=== PATIENT | male | born 1960 | race Caucasian/White ===

== ENCOUNTER 2022-09-03 06:37 | Outpatient (OUT) | payer BC, SELFPAY ==
[2022-09-03 07:42] LABS: Basophils Absolute Auto 0.1 10^3/uL (0.0-0.1); Basophils Percent Auto 0.9 % (0.2-2.0); Eosinophils Absolute Auto 0.3 10^3/uL (0.0-0.7); Eosinophils Percent Auto 3.7 % (0.9-7.0); Hemoglobin 17.1 g/dL (14.0-18.0); Immature Granulocytes Abs Auto 0.03 10^3/uL (0.00-0.03); Immature Granulocytes Pct Auto 0.4 % (0.0-0.5); Lymphocytes Absolute Auto 2.5 10^3/uL (1.2-3.8); Mean Corpuscular HGB Conc 34.2 g/dL (29.9-35.2); Mean Corpuscular Hemoglobin 30.4 pg (25.9-34.0); Mean Platelet Volume 9.7 fL (9.5-13.5); Monocytes Absolute Auto 0.8 10^3/uL (0.3-0.8); Monocytes Percent Auto 9.7 % (1.7-12.0); Neutrophils Absolute Auto 4.8 10^3/uL (1.4-6.5); Neutrophils Percent Auto 56.3 % (43.0-75.0); Platelet Count 256 10^3/uL (150-450); Red Blood Count 5.62 10^6/uL (4.70-6.10); Red Cell Distribution Width 12.5 % (11.0-15.0); White Blood Count 8.6 10^3/uL (4.0-11.0)
[2022-09-03 09:07] LABS: Estimated Average Glucose 171 mg/dL; Glycohemoglobin A1C 7.6 % (4.5-6.2)
[2022-09-03 14:44] LABS: Alanine Aminotransferase 41 U/L (16-63); Albumin Globulin Ratio 0.9; Albumin Level 3.5 g/dL (3.4-5.0); Alkaline Phosphatase 108 U/L (46-116); Anion Gap 13.6; Aspartate Amino Transferase 22 U/L (15-37); BUN Creatinine Ratio 10.8; Bilirubin Total 0.7 mg/dL (0.2-1.0); Calcium 9.1 mg/dL (8.5-10.1); Carbon Dioxide 27.3 mmol/L (21.0-32.0); Chloride 102 mmol/L (98-107); Chol HDL Ratio 3.6; Cholesterol 138 mg/dL (<=200); Estimated GFR (African America >60 (>=60); Estimated GFR (Non-African Ame >60 (>=60); Globulin 3.7 g/dL; Glucose 162 mg/dL (74-106); HDL Cholesterol 38 mg/dL (40-60); Potassium 3.9 mmol/L (3.5-5.1); Sodium 139 mmol/L (136-145); Thyroid Stimulating Hormone 0.775 uIU/mL (0.358-3.740); Total Protein 7.2 g/dL (6.4-8.2); Triglycerides 128 mg/dL (<=150); VLDL CHOLESTEROL 25.6 mg/dL
== END 2022-09-03 06:38 | disposition home or self-care (01) ==
LOC: LAB 06:37
PROVIDERS: PCP Internal Medicine; Visit Provider Internal Medicine
DX: Z00.00 Encounter for general adult medical examination without abnormal findings (principal); Z12.5 Encounter for screening for malignant neoplasm of prostate
CPT/HCPCS: 36415; 80053; 80061; 83036; 84443; 85025; G0103

== ENCOUNTER 2023-02-21 09:03 | Outpatient (OUT) | payer BC, SELFPAY ==
--- NOTE | 2023-02-21 09:22 | XR_ITS ---
[place] [id number] Patient Name: MARILIA BARKER MRN: [id number] date: 1960 Sex: M Assigned Patient Location: [facility] Current Patient Location: [facility] Accession/Order Number: [id number] Exam Date: 02/21/2023 09:17 Report Date: 02/21/2023 09:34 At the request of: SHON DOLAN Procedure: XR knee RT 4V EXAM: XR knee RT 4V HISTORY: Right Knee Joint Pain M25.561 COMPARISON: None. TECHNIQUE: 4 views FINDINGS: No acute fracture or dislocation. Mild degenerative changes of the medial compartment of the knee joint. Unremarkable soft tissues. XR/XR knee RT 4V IMPRESSION: Degenerative changes as above. Electronically authenticated by: HIRO LEVY Date: 02/21/2023 09:34
== END 2023-02-21 09:04 | disposition home or self-care (01) ==
LOC: RAD 09:03
PROVIDERS: PCP Internal Medicine; Visit Provider Orthopaedic Surgery
DX: M25.561 Pain in right knee (principal)
CPT/HCPCS: 73564

== ENCOUNTER 2023-02-28 06:51 | Outpatient (OUT) | payer BC, SELFPAY ==
--- NOTE | 2023-02-28 | MR_ITS ---
The [address] [address] Patient Name: MARILIA BARKER MRN: [id number] date: 1960 Sex: M Assigned Patient Location: MRI Current Patient Location: MRI Accession/Order Number: [id number] Exam Date: 02/28/2023 06:51 Report Date: 02/28/2023 21:12 At the request of: SHON DOLAN Procedure: MR knee RT wo con EXAM: MR knee RT wo con HISTORY: pain COMPARISON: 02/21/2023 TECHNIQUE: MRI images obtained with multiple sequences. Noncontrast MRI sequences of the right knee. FINDINGS: Motion artifact limits the examination. Anterior cruciate and posterior cruciate ligaments are intact. Medial collateral ligament and lateral supporting structures are intact. No definitive tear of the lateral meniscus. Lateral compartment articular cartilage is preserved. Suspected horizontal cleavage tear of the medial meniscal posterior horn and body (motion artifact limits the resolution). Surface contour irregularity/fissuring of the medial compartment and medial femoral condyle. Patellofemoral articular cartilage is preserved. Extensor mechanism is intact. No knee joint effusion. No significant subcutaneous soft tissue edema about the knee joint. MR/MR knee RT wo con IMPRESSION: Motion artifact limits the examination. 1. Suspected horizontal cleavage tear of the medial meniscal posterior horn and body. (For definitive characterization, examination should be repeated without motion) 2. Anterior cruciate and posterior cruciate ligaments are intact. 3. Full-thickness chondral fissuring of the medial femoral condyle. Electronically authenticated by: CASSI WEST Date: 02/28/2023 21:12
== END 2023-02-28 06:52 | disposition home or self-care (01) ==
LOC: MRI 06:51
PROVIDERS: PCP Internal Medicine; Visit Provider Orthopaedic Surgery
DX: M25.561 Pain in right knee (principal)
CPT/HCPCS: 73721

== ENCOUNTER 2023-04-07 13:57 | Outpatient (OUT) | payer BC, SELFPAY ==
--- OUTSIDE RECORDS SUMMARY | 2023-04-07 14:01 | XMS_ITS | CCD ---
Author Name Unknown Address [address] [facility] [address] [place] [address] Organization [facility] Care Team Providers Care Manager Of Employee Relations Name Role Phone CATARINA, DR SANDOVAL Primary Care Unavailable AYDEN, DR STILES Attending Unavailable HOY, DR STILES Consulting Unavailable AYDEN, DR STILES Admitting Unavailable BALL, DR SANDOVAL Primary Care Unavailable TERRY, JAYNA Attending Unavailable TERRY, JAYNA Consulting Unavailable TERRY, JAYNA Admitting Unavailable CATARINA, DR SANDOVAL Primary Care Unavailable CATARINA, DR SANDOVAL Admitting Unavailable CATARINA, DR SANDOVAL Attending Unavailable BALL, DR SANDOVAL Consulting Unavailable TERRY, JAYNA Admitting Unavailable BALL, DR SANDOVAL Primary Care Unavailable TERRY, JAYNA Attending Unavailable TERRY, JAYNA Consulting Unavailable CATARINA, DR SANDOVAL Admitting Unavailable BALL, DR SANDOVAL Attending Unavailable BALL, DR SANDOVAL Consulting Unavailable BALL, DR SANDOVAL Primary Care Unavailable Catarina, Christ Unavailable Allergies Allergy Classification Reported Allergen(s) Allergy Type Date of Onset Reaction(s) Facility (1 source) patient allergy list reviewed by nurse or physicia Propensity to adverse reactions Comment:Done [facility] Other (1 source) Allergies Reconciled Propensity to adverse reactions Unknown [facility] Other Medications Current Medications Medication Drug Class(es) Dates Sig (Normalized) Sig (Original) atorvastatin 20 mg oral tablet (4 sources) HMG-CoA Reductase Inhibitor Atorvastatin Calcium 20 MG TAKE 1 TABLET DAILY WITH EVENING MEAL for 90 Active etodolac 500 mg oral tablet (1 source) Nonsteroidal Anti-inflammatory Drug Start: 02-14-2023 take 1 tablet by mouth every twelve hours Etodolac 500 MG 1 tablet with food Orally Twice a day for 14 days Feb, Active losartan potassium 25 mg oral tablet (2 sources) Angiotensin 2 Receptor Rocio Start: 02-11-2023 take 1 tablet by mouth every twenty-four hours Losartan Potassium 25 MG 1 tablet Orally Once a day for 30 days Feb, Active metFORMIN hydrochloride 1000 mg oral tablet (4 sources) Biguanide take 1 tablet by mouth every twelve hours metFORMIN HCl 1000 MG 1 tablet with a meal Orally twice a day for 90 days Active omeprazole 20 mg delayed release oral capsule (4 sources) Proton Pump Inhibitor Omeprazole 20 MG TAKE 1 CAPSULE DAILY ON EMPTY STOMACH FOLLOWED IN 30 MINUTES BY BREAKFAST Active sildenafil 100 mg oral tablet (4 sources) Phosphodiesterase 5 Inhibitor take 1 tablet by mouth every twenty-four hours Sildenafil Citrate 100 MG 1 tablet as needed Orally Once a day Active traMADol hydrochloride 50 mg oral tablet (1 source) Opioid Agonist Start: 02-14-2023 take 1 tablet by mouth once daily at bedtime as needed traMADol HCl 50 MG 1 tablet as needed Orally Once a day at HS for 7 days Feb, Active Problems Active Problems Problem Classification Problem Date Documented Da te Episodic/Chronic Diabetes mellitus with complications (15 sources) Type 2 diabetes mellitus with hyperglycemia; Translations: [Hyperglycemia due to type 2 diabetes mellitus] Onset: 02-24-2022 Chronic Disorders of lipid metabolism (12 sources) Pure hypercholesterolemi a; Translations: [Familial hypercholesterolemi a] Resolved: 08-17-2019 Chronic Esophageal disorders (7 sources) Gastro-esophageal reflux disease with esophagitis; Translations: [Gastroesophageal reflux disease with esophagitis without hemorrhage] Onset: 07-19-2018 Chronic Essential hypertension (3 sources) Essential hypertension; Translations: [Essential (primary) hypertension] Chronic Hyperplasia of prostate (5 sources) Lower urinary tract symptoms due to benign prostatic hypertrophy; Translations: [Benign prostatic hyperplasia with lower urinary tract symptoms] Chronic Other circulatory disease (5 sources) Elevated blood-pressure reading without diagnosis of hypertension; Translations: [Elevated blood-pressure reading, without diagnosis of hypertension] Episodic Other ear and sense organ disorders (1 source) Impacted cerumen; Translations: [Impacted cerumen, bilateral] Episodic Other lower respiratory disease (4 sources) Lung mass; Translations: [Other nonspecific abnormal finding of lung field] Episodic Other lower respiratory disease (1 source) Solitary nodule of lung; Translations: [Solitary pulmonary nodule] Episodic Other lower respiratory disease (1 source) Lung field abnormal; Translations: [Other nonspecific abnormal finding of lung field] Episodic Other male genital disorders (4 sources) Impotence of organic origin; 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] Chronic Other nutritional; endocrine; and metabolic disorders (2 sources) Overweight Episodic Other nutritional; endocrine; and metabolic disorders (1 source) Overweight; Translations: [Overweight] Episodic Substance-related disorders (4 sources) Tobacco user; Translations: [Nicotine dependence, cigarettes, in remission] Chronic Superficial injury; contusion (2 sources) Contusion of right thigh, initial encounter; Translations: [Contusion of right lower leg, subsequent encounter] Episodic Unclassified (3 sources) CONTACT W/AND (SUSP) EXPOS COVID-19; Translations: [CONTACT W/AND (SUSP) EXPOS COVID-19] Onset: 11-22-2021 Past or Other Problems Problem Classification Problem Date Documented Da te Episodic/Chronic Bacterial infection; unspecified site (1 source) Bacterial infectious disease; Translations: [Bacterial infection, unspecified, in conditions classified elsewhere and of unspecified site] Onset: 08-29-2018 Episodic Diabetes mellitus without complication (1 source) Type 2 diabetes mellitus without complication; Translations: [Type 2 diabetes mellitus without complications] Resolved: 08-17-2019 Chronic Esophageal disorders (2 sources) Esophageal disorders Other screening for suspected conditions (not mental disorders or infectious disease) (1 source) Encounter for screening for malignant neoplasm of prostate; Translations: [ENC SCREEN MALIG NEOPLASM PROSTATE] Onset: 08-04-2021 Episodic Screening and history of mental health and substance abuse codes (1 source) History of tobacco use; Translations: [Personal history of tobacco use, presenting hazards to health] Onset: 09-06-2018 Episodic Skin and subcutaneous tissue infections (1 source) Cellulitis and abscess of trunk; Translations: [Cutaneous abscess of perineum] Onset: 08-29-2018 Episodic Unclassified (1 source) CONTACT W/AND (SUSP) EXPOS COVID-19; Translations: [CONTACT W/AND (SUSP) EXPOS COVID-19] Onset: 11-18-2021 Results Test Name Value Interpretation Reference Range Facility GLYCOHEMOGLOBIN A1Con 2021 ADA RECOMMENDATION SEE BELOW Normal [facility] Comment on above: Result Comment: ADA RECOMMENDED LIMIT 4.0 - 6.0 ADA THERAPEUTIC TARGET < 7.0 ACTION SUGGESTED > 7.0 Performed By: #### A 1C #### [facility] [address] [place] [address] Dr. Carmel Overton Glucose [Mass/Vol] 157 mg/dL Normal [facility] Comment on above: Performed By: #### A 1C #### [facility] [address] [place] [address] Dr. Carmel Overton HbA1c (Bld) [Mass fraction] 7.1 % Critically high 4.5-6.2 [facility] Comment on above: Performed By: #### A 1C #### [facility] [address] [place] [address] Dr. Carmel Overton Covid-19 PCR ([facility])on SARS-CoV-2 (COVID-19) RNA ABBE+probe Ql (Unsp spec) Not detected Normal NOT DETECTED [facility] Comment on above: Result Comment: When diagnostic testing is negative, the possibility of a false negative should be considered in the context of a patient's recent exposures and the presence of clinical signs and symptoms consistent with SARS-CoV-2. This test is not yet approved or cleared by the [place] FDA. When there are no FDA-approved or cleared tests available, and other criteria are met, FDA can make tests available under an emergency access mechanism called an Emergency Use Authorization (EUA). The EUA for this test is supported by the [place] of Health and Human Service's declaration that circumstances exist to justify the emergency use of in vitro diagnostics for the detection and/or diagnosis of the virus that causes COVID-19. This EUA will remain in effect for the duration of the COVID-19 declaration justifying emergency of IVDs, unless it is terminated or revoked by the FDA (after which the test may no longer be used). Performed By: #### C VDTBH #### [facility] [address] [place] [address] Dr. Carmel Overton CBC AUTO DIFFon 07-30-2021 BASO # 0.1 103/ul Normal 0.0-0.1 [facility] Comment on above: Performed By: #### C BC #### [facility] [address] [place] [address] Dr. Carmel Overton Basophils/100 WBC (Bld) 0.8 % Normal 0.2-2.0 [facility] Comment on above: Performed By: #### C BC #### [facility] [address] [place] [address] Dr. Carmel Overton EO # 0.3 103/ul Normal 0.0-0.7 [facility] Comment on above: Performed By: #### C BC #### [facility] [address] [place] [address] Dr. Carmel Overton Eosinophils/100 WBC (Bld) 3.6 % Normal 0.9-7.0 [facility] Comment on above: Performed By: #### C BC #### [facility] [address] [place] [address] Dr. Carmel Overton Erythrocyte distribution width (RBC) [Ratio] 12.4 % Normal 11.0-15.0 [facility] Comment on above: Performed By: #### C BC #### [facility] [address] [place] [address] Dr. Carmel Overton Hematocrit (Bld) [Volume fraction] 49.5 % Normal 42.0-54.0 [facility] Comment on above: Performed By: #### C BC #### [facility] [address] [place] [address] Dr. Carmel Overton Hemoglobin (Bld) [Mass/Vol] 16.8 g/dL Normal 14.0-18.0 [facility] Comment on above: Performed By: #### C BC #### [facility] [address] [place] [address] Dr. Careml Overton IG # 0.02 10e3/ul Normal 0.00-0.03 [facility] Comment on above: Performed By: #### C BC #### [facility] [address] [place] [address] Dr. Carmel Overton IG % 0.2 % Normal 0.0-0.5 [facility] Comment on above: Performed By: #### C BC #### [facility] [address] [place] [address] Dr. Carmel Overton LYMPH # 2.7 103/ul Normal 1.2-3.8 [facility] Comment on above: Performed By: #### C BC #### [facility] [address] [place] [address] Dr. Carmel Overton Lymphocytes/100 WBC (Bld) 30.8 % Normal 20.5-60.0 [facility] Comment on above: Performed By: #### C BC #### [facility] [address] [place] [address] Dr. Carmel Overton MANUAL DIFF REQ NO Normal [facility] Comment on above: Performed By: #### C BC #### [facility] [address] [place] [address] Dr. Carmel Overton MCH (RBC) [Entitic mass] 30.3 pg Normal 25.9-34.0 [facility] Comment on above: Performed By: #### C BC #### [facility] [address] [place] [address] Dr. Carmel Overton MCHC (RBC) [Mass/Vol] 33.9 g/dL Normal 29.9-35.2 [facility] Comment on above: Performed By: #### C BC #### [facility] [address] [place] [address] Dr. Carmel Overton MCV (RBC) [Entitic vol] 89.2 fL Normal 80.0-94.0 [facility] Comment on above: Performed By: #### C BC #### [facility] [address] [place] [address] Dr. Carmel Overton MONO # 0.8 103/ul Normal 0.3-0.8 [facility] Comment on above: Performed By: #### C BC #### [facility] [address] [place] [address] Dr. Carmel Overton Monocytes/100 WBC (Bld) 8.7 % Normal 1.7-12.0 [facility] Comment on above: Performed By: #### C BC #### [facility] [address] [place] [address] Dr. Carmel Overton NEUT # 4.8 103/ul Normal 1.4-6.5 [facility] Comment on above: Performed By: #### C BC #### [facility] [address] [address] [address] Carmel Overton Neutrophils/100 WBC (Bld) 55.9 % Normal 43.0-75.0 [facility] Comment on above: Performed By: #### C BC #### [facility] [address] [address] [address] Carmel Overton Platelet mean volume (Bld) [Entitic vol] 9.2 fL Critically low 9.5-13.5 [facility] Comment on above: Performed By: #### C BC #### [facility] [address] [address] [address] Carmel Overton PLT 266 103/ul Normal 150-450 [facility] Comment on above: Performed By: #### C BC #### [facility] [address] [address] [address] Carmel Overton RBC 5.55 106/ul Normal 4.70-6.10 [facility] Comment on above: Performed By: #### C BC #### [facility] [address] [address] [address] Carmel Overton WBC 8.6 103/ul Normal 4.0-11.0 [facility] Comment on above: Performed By: #### C BC #### [facility] [address] [address] [address] Carmel Overton GLYCOHEMOGLOBIN A1Con 2021 ADA RECOMMENDATION SEE BELOW Normal [facility] Comment on above: Result Comment: ADA RECOMMENDED LIMIT 4.0 - 6.0 ADA THERAPEUTIC TARGET < 7.0 ACTION SUGGESTED > 7.0 Performed By: #### A 1C #### [facility] [address] [address] [address] Carmel Overton Glucose [Mass/Vol] 157 mg/dL Normal [facility] Comment on above: Performed By: #### A 1C #### [facility] [address] [place] [address] Dr. Carmel Overton HbA1c (Bld) [Mass fraction] 7.1 % Critically high 4.5-6.2 [facility] Comment on above: Performed By: #### A 1C #### [facility] [address] [address] [address] Carmel Overton LIPID PROFILEon 07-30-2021 CHOL-HDL RATIO NORM SEE BELOW Normal [facility] Comment on above: Result Comment: 3.3 - 4.4 LOW RISK 4.4 - 7.1 AVERAGE RISK 7.1 - 11.0 MODERATE RISK >11.0 HIGH RISK Performed By: #### L IPID, TSH, CMP #### [facility] [address] [address] [address] Carmel Overton Cholesterol [Mass/Vol] 148 mg/dL Normal <=200 [facility] Comment on above: Performed By: #### L IPID, TSH, CMP #### [facility] [address] [address] [address] Carmel Overton Cholesterol in HDL [Mass/Vol] 39 mg/dL Critically low 40-60 [facility] Comment on above: Performed By: #### L IPID, TSH, CMP #### [facility] [address] [address] [address] Carmel Overton Cholesterol in LDL [Mass/Vol] 86.8 mg/dL Normal [facility] Comment on above: Performed By: #### L IPID, TSH, CMP #### [facility] [address] [address] [address] Carmel Overton Cholesterol.total/Cho lesterol in HDL [Mass ratio] 3.8 {ratio} Normal [facility] Comment on above: Performed By: #### L IPID, TSH, CMP #### [facility] [address] [address] [address] Carmel Overton HDL NORMAL > or = 60 mg/dl - LO W CARDIOVASCULAR RISK <40 mg/dl - HIGH CARDIOVASCULAR RISK Normal [facility] Comment on above: Performed By: #### L IPID, TSH, CMP #### [facility] [address] [address] [address] Carmel Overton LDL CALC NORMAL SEE BELOW Normal [facility] Comment on above: Result Comment: <100 mg/dl OPTIMAL 100 - 129 mg/dl NEAR OR ABOVE OPTIMAL 130 - 159 mg/dl BORDERLINE HIGH 160 - 189 mg/dl HIGH >190 mg/dl VERY HIGH Performed By: #### L IPID, TSH, CMP #### [facility] [address] [address] [address] Carmel Overton Triglyceride [Mass/Vol] 111 mg/dL Normal <=150 [facility] Comment on above: Performed By: #### L IPID, TSH, CMP #### [facility] [address] [address] [address] Carmel Overton VLDL CALC 22.2 mg/dL Normal [facility] Comment on above: Performed By: #### L IPID, TSH, CMP #### [facility] [address] [place] [address] Dr. Carmel Overton PROF 14(COMP METB)on 022 Albumin [Mass/Vol] 3.6 g/dL Normal 3.4-5.0 [facility] Comment on above: Performed By: #### L IPID, TSH, CMP #### [facility] [address] [place] [address] Dr. Carmel Overton Albumin/Globulin [Mass ratio] 1.0 {ratio} Normal [facility] Comment on above: Performed By: #### L IPID, TSH, CMP #### [facility] [address] [place] [address] Dr. Carmel Overton ALP [Catalytic activity/Vol] 113 U/L Normal 46-116 [facility] Comment on above: Performed By: #### L IPID, TSH, CMP #### [facility] [address] [place] [address] Dr. Carmel Overton ALT [Catalytic activity/Vol] 47 U/L Normal 16-63 [facility] Comment on above: Performed By: #### L IPID, TSH, CMP #### [facility] [address] [place] [address] Dr. Carmel Overton Anion gap [Moles/Vol] 11.8 mmol/L Normal [facility] Comment on above: Performed By: #### L IPID, TSH, CMP #### [facility] [address] [address] [address] Carmel Overton AST [Catalytic activity/Vol] 25 U/L Normal 15-37 [facility] Comment on above: Performed By: #### L IPID, TSH, CMP #### [facility] [address] [address] [address] Carmel Overton Bilirubin [Mass/Vol] 0.8 mg/dL Normal 0.2-1.0 [facility] Comment on above: Performed By: #### L IPID, TSH, CMP #### [facility] [address] [address] [address] Carmel Overton Calcium [Mass/Vol] 9.2 mg/dL Normal 8.5-10.1 [facility] Comment on above: Performed By: #### L IPID, TSH, CMP #### [facility] [address] [place] [address] Dr. Carmel Overton Chloride [Moles/Vol] 100 mmol/L Normal 98-107 [facility] Comment on above: Performed By: #### L IPID, TSH, CMP #### [facility] [address] [address] [address] Carmel Overton CO2 [Moles/Vol] 29.1 mmol/L Normal 21.0-32.[address] [facility] Comment on above: Performed By: #### L IPID, TSH, CMP #### [facility] [address] [place] [address] Dr. Carmel Overton Creatinine [Mass/Vol] 0.77 mg/dL Normal 0.70-1.30 [facility] Comment on above: Performed By: #### L IPID, TSH, CMP #### [facility] [address] [address] [address] Carmel Overton EGFR-AF MONGOLIAN >60 Normal >=60 [facility] Comment on above: Performed By: #### L IPID, TSH, CMP #### [facility] [address] [place] [address] Dr. Carmel Overton EGFR-NON AF MONGOLIAN >60 Normal >=60 [facility] Comment on above: Performed By: #### L IPID, TSH, CMP #### [facility] [address] [address] [address] Carmel Overton Globulin (S) [Mass/Vol] 3.6 g/dL Normal [facility] Comment on above: Performed By: #### L IPID, TSH, CMP #### [facility] [address] [address] [address] Carmel Overton Glucose [Mass/Vol] 172 mg/dL Critically high 74-[address] [facility] Comment on above: Performed By: #### L IPID, TSH, CMP #### [facility] [address] [place] [address] Dr. Carmel Overton Potassium [Moles/Vol] 3.9 mmol/L Normal 3.5-5.1 [facility] Comment on above: Performed By: #### L IPID, TSH, CMP #### [facility] [address] [place] [address] Dr. Carmel Overton Protein [Mass/Vol] 7.2 g/dL Normal 6.4-8.2 [facility] Comment on above: Performed By: #### L IPID, TSH, CMP #### [facility] [address] [place] [address] Dr. Carmel Overton Sodium [Moles/Vol] 137 mmol/L Normal 136-145 [facility] Comment on above: Performed By: #### L IPID, TSH, CMP #### [facility] [address] [place] [address] Dr. Carmel Overton Urea nitrogen [Mass/Vol] 9.0 mg/dL Normal 7.0-18.0 [facility] Comment on above: Performed By: #### L IPID, TSH, CMP #### [facility] [address] [place] [address] Dr. Carmel Overton Urea nitrogen/Creatinine [Mass ratio] 11.7 mg/mg Normal [facility] Comment on above: Performed By: #### L IPID, TSH, CMP #### [facility] [address] [place] [address] Dr. Carmel JEWELLon 07-30-2021 TSH 0.696 uIU/mL Normal 0.358-3.740 [facility] Comment on above: Performed By: #### L IPID, TSH, CMP #### [facility] [id number] Carmel Overton TSH RANGE SEE BELOW Normal [facility] Comment on above: Result Comment: <0.3 4 UIU/ml HYPERTHYROID 0.34-5.60 UIU/ml EUTHYROID >5.60 UIU/ml HYPOTHYROID Performed By: #### L IPID, TSH, CMP #### [facility] [address] [address] [address] Carmel Overton Covid-19 PCR ([facility])on 03-14 SARS-CoV-2 (COVID-19) RNA ABBE+probe Ql (Unsp spec) Not detected Normal NOT DETECTED [facility] Comment on above: Result Comment: When diagnostic testing is negative, the possibility of a false negative should be considered in the context of a patient's recent exposures and the presence of clinical signs and symptoms consistent with SARS-CoV-2. This test is not yet approved or cleared by the [place] Food and Drug Administration (FDA). This test was developed by [employer], [place], [place]. The performance characteristics of this test were validated by [facility]. The results are not intended to be used as the sole means for clinical diagnosis or patient management decisions. [facility] is authorized under Clinical Laboratory Improvement Amendments (CLIA) to perform high- complexity testing. This test is not yet approved or cleared by the [place] FDA. When there are no FDA-approved or cleared tests available, and other criteria are met, FDA can make tests available under an emergency access mechanism called an Emergency Use Authorization (EUA). The EUA for this test is supported by the [place] of Health and Human Service's declaration that circumstances exist to justify the emergency use of in vitro diagnostics for the detection and/or diagnosis of the virus that causes COVID-19. This EUA will remain in effect for the duration of the COVID-19 declaration justifying emergency of IVDs, unless it is terminated or revoked by the FDA (after which the test may no longer be used). Performed By: #### C VDTBH #### [facility] [address] [place] [address] Dr. Carmel Overton Vital Signs Date Time Vital Sign Value Performing Clinician Facility 02-11-2023 08:30-0500 Body height 175.26 cm Christ Ball Other [facility] Other 02-11-2023 08:30-0500 Body mass index (BMI) [Ratio] 25.9 kg/m2 Christ Ball Other [facility] Other 02-11-2023 08:30-0500 Body weight 79.56 kg Christ Ball Other [facility] Other 02-11-2023 08:30-0500 Diastolic blood pressure 88 mm[Hg] Christ Ball Other [facility] Other 02-11-2023 08:30-0500 Respiratory rate 12 /min Christ Ball Other [facility] Other 02-11-2023 08:30-0500 Systolic blood pressure 138 mm[Hg] Christ Ball Other [facility] Other 09-09-2022 09:00-0400 Body height 175.26 cm Christ Ball Other [facility] Other 09-09-2022 09:00-0400 Body mass index (BMI) [Ratio] 26.34 kg/m2 Christ Ball Other [facility] Other 09-09-2022 09:00-0400 Body weight 80.92 kg Christ Ball Other [facility] Other 09-09-2022 09:00-0400 Diastolic blood pressure 85 mm[Hg] Christ Ball Other [facility] Other 09-09-2022 09:00-0400 Respiratory rate 12 /min Christ Catarina Other [facility] Other 09-09-2022 09:00-0400 Systolic blood pressure 139 mm[Hg] Christ Elmore Other [facility] Other Encounters Encounter Date Encounter Type Care Provider Facility Start: 02-14-2023 End: 02-14-2023 ambulatory Christ Elmore Other [facility] Other Start: 02-14-2023 Telephone encounter Christ TOMAS G [facility] Start: 02-11-2023 End: 02-11-2023 ambulatory Christ Catarina Other [facility] Other Start: 02-11-2023 Office outpatient vi sit 15 minutes Christ Elmore [facility] Start: 12-25-2022 End: 12-25-2022 ambulatory Christ Elmore Other [facility] Other Start: 12-25-2022 Telephone encounter Christ TOMAS G [facility] Start: 09-09-2022 End: 09-09-2022 ambulatory Christ Catarina Other [facility] Other Start: 09-09-2022 Encounter for genera l adult medical examination without abnormal findings Christ Elmore [facility] Start: 09-09-2022 Periodic preventive med est patient 40-64yrs Christ Elmore [facility] Start: 02-24-2022 End: 02-25-[address] CHRIST ELMORE Facility:[facility] Start: 02-10-2022 End: 02-11-[address] CHRIST ELMORE Facility:[facility] Start: 11-18-2021 End: 11-18-2021 ambulatory JAYNA STEWART Facility:[facility] Start: 08-26-2021 Adult health examination Christ Elmore Other [facility] Other Start: 08-04-2021 Encounter for genera l adult medical examination without abnormal findings DR CHRIST ELMORE [facility] Start: 07-30-2021 End: 07-31-[address] CHRIST ELMORE Facility:[facility] Start: 07-30-2021 End: 07-31-2021 Encounter for general adult medical examination without abnormal findings DR CHRIST ELMORE Facility:[facility] Start: 03-30-2021 End: 03-30-[address] CHRIST ELMORE Facility:[facility] Procedures Date Procedure Procedure Detail Performing Clinician Start: 07-30-[address] DYAN ELMORE Comment on above: Performed By: #### P SASC #### [facility] [address] [address] [address] Carmel Overton Start: 08-02-2018 General examination of patient Christ Elmore Other Start: 08-02-2018 Screening for malign ant neoplasm of colon Christ Catarina Other Depression screening [facility] Other Immunizations Immunization Date Immunization Notes Care Provider [facility] 02-16-2022 COVID-19 Vaccine Moderna - Documentation Purposes Only Christ Elmore Other [facility] Other 01-23-2021 COVID-19 Vaccine Moderna - Documentation Purposes Only Christ Elmore Other [facility] Other 04-10-2020 COVID-19 Vaccine Moderna - Documentation Purposes Only Christ Elmore Other [facility] Other 03-12-2020 COVID-19 Vaccine Moderna - Documentation Purposes Only Christ Elmore Other [facility] Other 01-12-2017 influenza virus vaccine, split virus (incl. purified surface antigen) Christ Elmore Other [facility] Other Payers Date Payer Category Payer Unknown [id number] 1960 Unknown [id number] 2.16.84 [id number] 1960 Unknown [id number] 2.16.84 [id number] 1960 Unknown [id number] 2.16.84 [id number] 1960 Unknown [id number] 2.16.84 [id number] 1959 Self-pay [id number] [facility] [id number] Unknown [id number] 2.16.84 [id number] Social History Date Type Detail Facility Sex Assigned At [facility] Other Evaluation note 02-14-2023 Note Date & Type Note Facility 02-14-2023 Evaluation note Encounter Date Diagnosis Assessment Notes Feb, Contusion of right lower leg, subsequent encounter (ICD-10 - S80.11XD) [facility] Other Evaluation note 02-11-2023 Note Date & Type Note Facility 02-11-2023 Evaluation note Encounter Date Diagnosis Assessment Notes Feb, Type 2 diabetes mellitus with hyperglycemia, without long-term current use of insulin (ICD-10 - E11.65) Feb, Primary hypertension (ICD-10 - I10) This patient is instructed to consume a healthy, low-fat, low-salt diet. They are also encouraged to continue exercise to achieve/maintain a normal BMI. Patient is instructed on home BP measurements: - rest for 5 minutes w/o talking- positioned w/ feet on floor and arm supported- average best 2/3 readings w/ goal < 135/85 Stop in office in couple weeks for recheck Feb, Hypercholesterolemia (ICD-10 - E78.00) Instructed on diet and exercise with continued statin therapy.Discusse d the beneficial effects of lowering cholesterol in reducing the risk for cerebrovascular and cardiovascular disease. Feb, Contusion of right thigh, initial encounter (ICD-10 - S70.11XA) Ice/heat and ROM exercises. Tylenol 1000mg tid Voltaren Gel qid Compression sleeve ROM exercises. Feb, Overweight (ICD-10 - E66.3) This patient has been instructed on a low-fat, high-fiber diet. They are instructed to reduce calories, portion sizes and snacks. It is recommended that they exercise for 30 minutes, 3-5 times weekly. Feb, Gastroesophageal reflux disease with esophagitis without hemorrhage (ICD-10 - K21.00) Diet instructions: Smaller portions, avoid eating and laying flat, avoid eating or drinking prior to bedtime. Weight loss. [facility] Other Evaluation note 09-09-2022 Note Date & Type Note Facility 09-09-2022 Evaluation note Encounter Date Diagnosis Assessment Notes Aug, Wellness examination (ICD-10 - Z00.00) Healthy diet and exercise. Reviewed age-appropriate preventive testing recommended. Aug, Type 2 diabetes mellitus with hyperglycemia, without long-term current use of insulin (ICD-10 - E11.65) This patient is following a comprehensive diabetic treatment plan. They are checking their feet daily for calluses and nonhealing ulcers. They are being seen for yearly dilated eye examinations. Goals: SBP less than 130, LDL less than 100, FBS less than 140, AC and A1C less than 7%. They are checking their BS daily, will which are reviewed at the office visit. Continue regular routine monitoring of A1C,] Microalbumin, Dilated eye exam and Foot exam Increase Metformin gradually until taking 1000mg bid Aug, Gastroesophageal reflux disease with esophagitis without hemorrhage (ICD-10 - K21.00) Diet instructions: Smaller portions, avoid eating and laying flat, avoid eating or drinking prior to bedtime. Weight loss. Aug, Hypercholesterolemia (ICD-10 - E78.00) Instructed on diet and exercise with continued statin therapy.Discusse d the beneficial effects of lowering cholesterol in reducing the risk for cerebrovascular and cardiovascular disease. Aug, Overweight (ICD-10 - E66.3) This patient has been instructed on a low-fat, high-fiber diet. They are instructed to reduce calories, portion sizes and snacks. It is recommended that they exercise for 30 minutes, 3-5 times weekly. [facility] Other Evaluation note Note Date & Type Note Facility Evaluation note No Information [facility] Other History general Narrative - Reported Note Date & Type Note Facility History general Narrative - Reported Type Medical History Elevated blood press ure (not hypertension) Medical History Erectile dysfunction due to arterial insufficiency Medical History Nicotine dependence, cigarettes, in remission Medical History Benign prostatic hyp erplasia with lower urinary tract symptoms Medical History Gastroesophageal ref lux disease with esophagitis without hemorrhage Medical History Hyperlipidemia type II Medical History Controlled type 2 di abetes mellitus with hyperglycemia, without long-term current use of insulin Medical History Lung mass Surgical History Appendectomy 2017 Hospitalization History see surgical history [facility] Other Summary Purpose Family History No Family History Records Found Advance Directives No Advanced Directives Records Found Additional Source Comments (unrecognized sect ion and content) No Status Records Found INFORMATION SOURCE (unrecogn ized section and content) DATE CREATED AUTHOR 03/05/2022 [facility] REASON FOR VISIT (unrecogniz ed section and content) WellnessNo Information6 stewart h Follow up/ kneeAdditional Medication FOR RECORDS PERTAINING TO PATIENTS WHO ARE OR HAVE BEEN ENROLLED IN A CHEMICAL DEPENDENCY/SUBSTANCEABUSE PROGRAM, SOME INFORMATION MAY BE OMITTED. This clinical summary was aggregated from multiple sources. Caution should be exercised in using it in the provision of clinical care. This summary normalizes information from multiple sources, and as a consequence, information in this document may materially change the coding, format and clinical context of patient data. In addition, data may be omitted in some cases. CLINICAL DECISIONS SHOULD BE BASED ON THE PRIMARY CLINICAL RECORDS. [employer] provides no warranty or guarantee of the accuracy or completeness of information in this document.
[2023-04-07] MEDS: COVID VAC 23-24(12UP)MODERNA/PF 50 MCG/0.5 ML VIAL IM (15:31)
== END 2023-04-07 16:25 | disposition home or self-care (01) ==
LOC: VACCLI 13:57
PROVIDERS: PCP Internal Medicine
DX: Z23 Encounter for immunization (principal)
CPT/HCPCS: 90480; 91322

== ENCOUNTER 2023-09-02 06:33 | Outpatient (OUT) | payer BC, SELFPAY ==
--- OUTSIDE RECORDS SUMMARY | 2023-09-02 06:34 | XMS_ITS ---
Patient Summarization (C-CDA 2.1 CCD) Created on: September 02, 2023 MARILIA BARKER : 1960 Sex: Male Author Organization Sample organization Care Team Providers Care Dowel Pointer Name Role Phone CATARINA, DR SANDOVAL Primary Care Unavailable SHARITAY, DR STILES Attending Unavailable HOY, DR STILES Consulting Unavailable HOY, DR STILES Admitting Unavailable BALL, DR SANDOVAL Primary Care Unavailable TERRY, JAYNA Attending Unavailable TERRY, JAYNA Consulting Unavailable TERRY, JAYNA Admitting Unavailable BALL, DR SANDOVAL Primary Care Unavailable BALL, DR SANDOVAL Admitting Unavailable BALL, DR SANDOVAL Attending Unavailable BALL, DR SANDOVAL Consulting Unavailable TERRY, AJYNA Admitting Unavailable BALL, DR SANDOVAL Primary Care Unavailable TERRY, JAYNA Attending Unavailable TERRY, JAYNA Consulting Unavailable BALL, DR SANDOVAL Admitting Unavailable BALL, DR SANDOVAL Attending Unavailable BALL, DR SANDOVAL Consulting Unavailable BALL, DR SANDOVAL Primary Care Unavailable Ball, Christ Unavailable Allergies Allergy Classification Reported Allergen(s) Allergy Type Date of Onset Reaction(s) Facility (1 source) patient allergy list reviewed by nurse or physicia Propensity to adverse reactions 9 Comment:Done YES.[facility]AP Other (1 source) Allergies Reconciled Propensity to adverse reactions Unknown [facility] Other Encounters Encounter Date Encounter Type Care Provider Facility Start: 02-14-2023 End: 02-14-2023 ambulatory Christ Elmore Other YES[facility]AP Other Start: 02-14-2023 Telephone encounter Christ TOMAS [facility] Start: 02-11-2023 End: 02-11-2023 ambulatory Christ Elmore Other YES.TAP Other Start: 02-11-2023 Office outpatient vi sit 15 minutes Christ Elmore [facility] Start: 12-25-2022 End: 12-25-2022 ambulatory Christ Elmore Other YES[facility] Other Start: 12-25-2022 Telephone encounter Christ Elmore [facility] Start: 09-09-2022 End: 09-09-2022 ambulatory Christ Elmore Other YES.TAP Other Start: 09-09-2022 Encounter for genera l adult medical examination without abnormal findings Christ Elmore [facility] Start: 09-09-2022 Periodic preventive med est patient 40-64yrs Christ Elmore [facility] Start: 02-24-2022 End: 02-25-[address] CHRIST ELMORE Facility:[facility] Start: 02-10-2022 End: 02-11-[address] CHRIST ELMORE Facility:[facility] Start: 11-18-2021 End: 11-18-2021 ambulatory JAYNA STEWART Facility:[facility] Start: 08-26-2021 Adult health examination Christ Elmore Other YES[facility]TAP Other Start: 08-04-2021 Encounter for genera l adult medical examination without abnormal findings DR CHRIST ELMORE [facility] Start: 07-30-2021 End: 07-31-[address] CHRIST ELMORE Facility:[facility] Start: 07-30-2021 End: 07-31-2021 Encounter for general adult medical examination without abnormal findings DR CHRIST ELMORE Facility:[facility] Start: 03-30-2021 End: 03-30-[address] CHRIST ELMORE Facility:[facility] Immunizations Immunization Date Immunization Notes Care Provider Fa daniella 02-16-2022 COVID-19 Vaccine Moderna - Documentation Purposes Only Christ Elmore Other [facility] Other 01-23-2021 COVID-19 Vaccine Moderna - Documentation Purposes Only Christ Elmore Other [facility] Other 04-10-2020 COVID-19 Vaccine Moderna - Documentation Purposes Only Christ Elmore Other [facility] Other 03-12-2020 COVID-19 Vaccine Moderna - Documentation Purposes Only Christ Elmore Other YES.TAP Other 01-12-2017 influenza virus vaccine, split virus (incl. purified surface antigen) Christ Elmore Other YES.TAP Other Medications Current Medications Medication Drug Class(es) [...] at HS for 7 days Feb, Active Payers Date Payer Category Payer Unknown [id number] 1960 Unknown [id number] 1960 Unknown [id number] 1960 Unknown [id number] 1960 Unknown [id number] 1959 Self-pay [id number] [facility] [id number] Unknown [id number] Problems Active Problems Problem Classification Problem Date [...] [CONTACT W/AND (SUSP) EXPOS COVID-19] Onset: 11-18-2021 Procedures Date Procedure Procedure Detail Performing Clinician Start: 07-30-[address] ZAIDI IN [facility] Comment on above: Performed By: #### P [facility] #### [facility] [address] [place] [address] Dr. Carmel Overton Start: 08-02-2018 General examination of patient Christ Elmore Other Start: 08-02-2018 Screening for malign ant neoplasm of colon Christ Elmore Other Depression screening Jimbo Elmore Other Results Test Name Value Interpretation Reference Range Facility GLYCOHEMOGLOBIN A1Con 2021 ADA RECOMMENDATION SEE BELOW Normal [facility] Comment on above: Result Comment: ADA RECOMMENDED LIMIT 4.0 - 6.0 ADA THERAPEUTIC TARGET < 7.0 ACTION SUGGESTED > 7.0 Performed By: #### A 1C #### [facility] [address] [place] [address] Dr. Carmel Overton Glucose [Mass/Vol] 157 mg/dL Normal [facility] Comment on above: Performed By: #### A 1C #### [facility] [address] [place] [address] Dr. Carmel Overton HbA1c (Bld) [Mass fraction] 7.1 % Critically high 4.5-6.2 [facility] Comment on above: Performed By: #### A 1C #### [facility] [address] [place] [address] Dr. Carmel Overton Covid-19 PCR ([facility])on SARS-CoV-2 (COVID-19) RNA ABBE+probe Ql (Unsp spec) Not detected Normal NOT DETECTED [facility] Comment on above: Result Comment: When diagnostic [...] for this test is supported by the [place] of Health and Human Service's declaration that [...] used). Performed By: #### C V[facility] #### [facility] [address] [place] [address] Dr. Carmel Overton CBC AUTO DIFFon 07-30-2021 BASO # 0.1 103/ul Normal 0.0-0.1 [facility] Comment on above: Performed By: #### C BC #### [facility] [address] [place] [address] Dr. Carmel Overton Basophils/100 WBC (Bld) 0.8 % Normal 0.2-2.0 [facility] Comment on above: Performed By: #### C BC #### [facility] [address] [place] [address] Dr. Carmel Overton EO # 0.3 103/ul Normal 0.0-0.7 [facility] Comment on above: Performed By: #### C BC #### [facility] [address] [place] [address] Dr. Carmel Overton Eosinophils/100 WBC (Bld) 3.6 % Normal 0.9-7.0 [facility] Comment on above: Performed By: #### C BC #### [facility] [address] [place] [address] Dr. Carmel Overton Erythrocyte distribution width (RBC) [Ratio] 12.4 % Normal 11.0-15.0 [facility] Comment on above: Performed By: #### C BC #### [facility] [address] [place] [address] Dr. Carmel Overton Hematocrit (Bld) [Volume fraction] 49.5 % Normal 42.0-54.0 [facility] Comment on above: Performed By: #### C BC #### [facility] [address] [place] [address] Dr. Carmel Overton Hemoglobin (Bld) [Mass/Vol] 16.8 g/dL Normal 14.0-18.0 [facility] Comment on above: Performed By: #### C BC #### [facility] [address] [place] [address] Dr. Carmel Overton IG # 0.02 10e3/ul Normal 0.00-0.03 [facility] Comment on above: Performed By: #### C BC #### [facility] [address] [place] [address] Dr. Carmel Overton IG % 0.2 % Normal 0.0-0.5 [facility] Comment on above: Performed By: #### C BC #### [facility] [address] [place] [address] Dr. Carmel Overton LYMPH # 2.7 103/ul Normal 1.2-3.8 [facility] Comment on above: Performed By: #### C BC #### [facility] [address] [place] [address] Dr. Carmel Overton Lymphocytes/100 WBC (Bld) 30.8 % Normal 20.5-60.0 [facility] Comment on above: Performed By: #### C BC #### [facility] [address] [place] [address] Dr. Carmel Overton MANUAL DIFF REQ NO Normal [facility] Comment on above: Performed By: #### C BC #### [facility] [address] [place] [address] Dr. Carmel Overton MCH (RBC) [Entitic mass] 30.3 pg Normal 25.9-34.0 [facility] Comment on above: Performed By: #### C BC #### [facility] [address] [place] [address] Dr. Carmel Overton MCHC (RBC) [Mass/Vol] 33.9 g/dL Normal 29.9-35.2 [facility] Comment on above: Performed By: #### C BC #### [facility] [address] [place] [address] Dr. Carmel Overton MCV (RBC) [Entitic vol] 89.2 fL Normal 80.0-94.0 [facility] Comment on above: Performed By: #### C BC #### [facility] [address] [place] [address] Dr. Carmel Overton MONO # 0.8 103/ul Normal 0.3-0.8 [facility] Comment on above: Performed By: #### C BC #### [facility] [address] [place] [address] Dr. Carmel Overton Monocytes/100 WBC (Bld) 8.7 % Normal 1.7-12.0 [facility] Comment on above: Performed By: #### C BC #### [facility] [address] [address] [address] Carmel Overton NEUT # 4.8 103/ul Normal 1.4-6.5 [facility] Comment on above: Performed By: #### C BC #### [facility] [address] [address] [address] Carmel Overton Neutrophils/100 WBC (Bld) 55.9 % Normal 43.0-75.0 [facility] Comment on above: Performed By: #### C BC #### [facility] [address] [address] [address] Carmel Overton Platelet mean volume (Bld) [Entitic vol] 9.2 fL Critically low 9.5-13.5 [facility] Comment on above: Performed By: #### C BC #### [facility] [address] [address] [address] Carmel Overton PLT 266 103/ul Normal 150-450 [facility] Comment on above: Performed By: #### C BC #### [facility] [address] [place] [address] Dr. Carmel Overton RBC 5.55 106/ul Normal 4.70-6.10 [facility] Comment on above: Performed By: #### C BC #### [facility] [address] [address] [address] Carmel Overton WBC 8.6 103/ul Normal 4.0-11.0 [facility] Comment on above: Performed By: #### C BC #### [facility] [address] [place] [address] Dr. Carmel Overton GLYCOHEMOGLOBIN A1Con 2021 ADA RECOMMENDATION SEE BELOW Normal [facility] Comment on above: Result Comment: ADA RECOMMENDED LIMIT 4.0 - 6.0 ADA THERAPEUTIC TARGET < 7.0 ACTION SUGGESTED > 7.0 Performed By: #### A 1C #### [facility] [address] [place] [address] Dr. Carmel Overton Glucose [Mass/Vol] 157 mg/dL Normal [facility] Comment on above: Performed By: #### A 1C #### [facility] [address] [address] [address] Carmel Overton HbA1c (Bld) [Mass fraction] 7.1 % Critically high 4.5-6.2 [facility] Comment on above: Performed By: #### A 1C #### [facility] [address] [address] [address] Carmel Overton LIPID PROFILEon 07-30-2021 CHOL-HDL RATIO NORM SEE BELOW Normal [facility] Comment on above: Result Comment: 3.3 - 4.4 LOW RISK 4.4 - 7.1 AVERAGE RISK 7.1 - 11.0 MODERATE RISK >11.0 HIGH RISK Performed By: #### L IPID, TSH, CMP #### [facility] [address] [place] [address] Dr. Carmel Overton Cholesterol [Mass/Vol] 148 mg/dL Normal <=200 [facility] Comment on above: Performed By: #### L IPID, TSH, CMP #### [facility] [address] [address] [address] Carmel Overton Cholesterol in HDL [Mass/Vol] 39 mg/dL Critically low 40-60 [facility] Comment on above: Performed By: #### L IPID, TSH, CMP #### [facility] [address] [place] [address] Dr. Carmel Overton Cholesterol in LDL [Mass/Vol] 86.8 mg/dL Normal [facility] Comment on above: Performed By: #### L IPID, TSH, CMP #### [facility] [address] [address] [address] Carmel Overton Cholesterol.total/Cho lesterol in HDL [Mass ratio] 3.8 {ratio} Normal [facility] Comment on above: Performed By: #### L IPID, TSH, CMP #### [facility] [address] [place] [address] Dr. Carmel Overton HDL NORMAL > or = 60 mg/dl - LO W CARDIOVASCULAR RISK <40 mg/dl - HIGH CARDIOVASCULAR RISK Normal [facility] Comment on above: Performed By: #### L IPID, TSH, CMP #### [facility] [address] [address] [address] Carmel Overton LDL CALC NORMAL SEE BELOW Normal [facility] Comment on above: Result Comment: <100 mg/dl OPTIMAL 100 - 129 mg/dl NEAR OR ABOVE OPTIMAL 130 - 159 mg/dl BORDERLINE HIGH 160 - 189 mg/dl HIGH >190 mg/dl VERY HIGH Performed By: #### L IPID, TSH, CMP #### [facility] [address] [address] [address] Carmel Overton Triglyceride [Mass/Vol] 111 mg/dL Normal <=150 [facility] Comment on above: Performed By: #### L IPID, TSH, CMP #### [facility] [address] [place] [address] Dr. Carmel Overton VLDL CALC 22.2 mg/dL Normal [facility] Comment on above: Performed By: #### L IPID, TSH, CMP #### [facility] [address] [place] [address] Dr. Carmel Overton PROF 14(COMP METB)on 022 Albumin [Mass/Vol] 3.6 g/dL Normal 3.4-5.0 [facility] Comment on above: Performed By: #### L IPID, TSH, CMP #### [facility] [address] [place] [address] Dr. Carmel Overton Albumin/Globulin [Mass ratio] 1.0 {ratio} Normal [facility] Comment on above: Performed By: #### L IPID, TSH, CMP #### [facility] [address] [place] [address] Dr. Carmel Overton ALP [Catalytic activity/Vol] 113 U/L Normal 46-116 [facility] Comment on above: Performed By: #### L IPID, TSH, CMP #### [facility] [address] [place] [address] Dr. Carmel Overton ALT [Catalytic activity/Vol] 47 U/L Normal 16-63 [facility] Comment on above: Performed By: #### L IPID, TSH, CMP #### [facility] [address] [place] [address] Dr. Carmel Overton Anion gap [Moles/Vol] 11.8 mmol/L Normal [facility] Comment on above: Performed By: #### L IPID, TSH, CMP #### [facility] [address] [address] [address] Carmel Overton AST [Catalytic activity/Vol] 25 U/L Normal 15-37 [facility] Comment on above: Performed By: #### L IPID, TSH, CMP #### [facility] [address] [address] [address] Carmel Overton Bilirubin [Mass/Vol] 0.8 mg/dL Normal 0.2-1.0 [facility] Comment on above: Performed By: #### L IPID, TSH, CMP #### [facility] [address] [place] [address] Dr. Carmel Overton Calcium [Mass/Vol] 9.2 mg/dL Normal 8.5-10.1 [facility] Comment on above: Performed By: #### L IPID, TSH, CMP #### [facility] [address] [place] [address] Dr. Carmel Overton Chloride [Moles/Vol] 100 mmol/L Normal 98-107 [facility] Comment on above: Performed By: #### L IPID, TSH, CMP #### [facility] [address] [place] [address] Dr. Carmel Overton CO2 [Moles/Vol] 29.1 mmol/L Normal 21.0-32.0 The [facility] Comment on above: Performed By: #### L IPID, TSH, CMP #### [facility] [address] [place] [address] Dr. Carmel Overton Creatinine [Mass/Vol] 0.77 mg/dL Normal 0.70-1.30 [facility] Comment on above: Performed By: #### L IPID, TSH, CMP #### [facility] [address] [place] [address] Dr. Carmel Overton EGFR-AF SOMALI >60 Normal >=60 The [facility] Comment on above: Performed By: #### L IPID, TSH, CMP #### [facility] [address] [address] [address] Carmel Overton EGFR-NON AF SOMALI >60 Normal >=60 [facility] Comment on above: Performed By: #### L IPID, TSH, CMP #### [facility] [address] [address] [address] Carmel Overton Globulin (S) [Mass/Vol] 3.6 g/dL Normal [facility] Comment on above: Performed By: #### L IPID, TSH, CMP #### [facility] [address] [address] [address] Carmel Overton Glucose [Mass/Vol] 172 mg/dL Critically high 74-106 [facility] Comment on above: Performed By: #### L IPID, TSH, CMP #### [facility] [address] [address] [address] Carmel Overton Potassium [Moles/Vol] 3.9 mmol/L Normal 3.5-5.1 [facility] Comment on above: Performed By: #### L IPID, TSH, CMP #### [facility] [address] [address] [address] Carmel Overton Protein [Mass/Vol] 7.2 g/dL Normal 6.4-8.2 [facility] Comment on above: Performed By: #### L IPID, TSH, CMP #### [facility] [address] [address] [address] Carmel Overton Sodium [Moles/Vol] 137 mmol/L Normal 136-145 [facility] Comment on above: Performed By: #### L IPID, TSH, CMP #### [facility] [address] [place] [address] Dr. Carmel Overton Urea nitrogen [Mass/Vol] 9.0 mg/dL Normal 7.0-18.0 [facility] Comment on above: Performed By: #### L IPID, TSH, CMP #### [facility] [address] [place] [address] Dr. Carmel Overton Urea nitrogen/Creatinine [Mass ratio] 11.7 mg/mg Normal [facility] Comment on above: Performed By: #### L IPID, TSH, CMP #### [facility] [address] [address] [address] Carmel Overton TSHon 07-30-2021 TSH 0.696 uIU/mL Normal 0.358-3.740 [facility] Comment on above: Performed By: #### L IPID, TSH, CMP #### [facility] [address] [address] [address] Carmel Overton TSH RANGE SEE BELOW Normal [facility] Comment on above: Result Comment: <0.3 4 UIU/ml HYPERTHYROID 0.34-5.60 UIU/ml EUTHYROID >5.60 UIU/ml HYPOTHYROID Performed By: #### L IPID, TSH, CMP #### [facility] [address] [address] [address] Carmel Over[facility]14 SARS-CoV-2 (COVID-19) RNA ABBE+probe Ql (Unsp spec) Not detected Normal NOT DETECTED [facility] Comment on above: Result Comment: When diagnostic testing is negative, the possibility of a false negative should be considered in the context of a patient's recent exposures and the presence of clinical signs and symptoms consistent with SARS-CoV-2. This test is not yet approved or cleared by the [place] Food and Drug Administration (FDA). This test was developed by [employer], [place], [place]. The performance characteristics of this test were validated by The [facility]. The results are not intended to be used as the sole means for clinical diagnosis or patient management decisions. The [facility] is authorized under Clinical Laboratory Improvement Amendments [...] for this test is supported by the [place] of Health and Human Service's declaration that [...] longer be used). Performed By: #### C [facility] #### [facility] [address] [address] [address] Carmel Overton Social History Date Type Detail Facility Sex Assigned At YES.TAP Other Vital Signs Date Time Vital Sign Value Performing Clinician Facility 02-11-2023 08:30-0500 Body height 175.26 cm Christ Ball Other [facility] Other 02-11-2023 08:30-0500 Body mass index (BMI) [Ratio] 25.9 kg/m2 Christ Ball Other [facility] Other 02-11-2023 08:30-0500 Body weight 79.56 kg Christ Ball Other [facility] Other 02-11-2023 08:30-0500 Diastolic blood pressure 88 mm[Hg] Christ Ball Other [facility] Other 02-11-2023 08:30-0500 Respiratory rate 12 /min Christ Ball Other [facility] Other 02-11-2023 08:30-0500 Systolic blood pressure 138 mm[Hg] Christ Ball Other [facility] Other 09-09-2022 09:00-0400 Body height 175.26 cm Christ Ball Other [facility] Other 09-09-2022 09:00-0400 Body mass index (BMI) [Ratio] 26.34 kg/m2 Christ Ball Other [facility] Other 09-09-2022 09:00-0400 Body weight 80.92 kg Liquid X Other [facility] Other 09-09-2022 09:00-0400 Diastolic blood pressure 85 mm[Hg] [facility] Other [facility] Other 09-09-2022 09:00-0400 Respiratory rate 12 /min [facility] Other [facility] Other 09-09-2022 09:00-0400 Systolic blood pressure 139 mm[Hg] [facility] Other YES[facility] Other Evaluation note 02-14-2023 Note Date & Type Note Facility 02-14-2023 Evaluation note Encounter Date Diagnosis Assessment Notes Feb, Contusion of right lower leg, subsequent encounter (ICD-10 - S80.11XD) [facility] Other Evaluation note 02-11-2023 Note Date & [...] or drinking prior to bedtime. Weight loss. [facility] Other Evaluation note 09-09-2022 Note Date & [...] exercise for 30 minutes, 3-5 times weekly. YES[facility] Other Evaluation note Note Date & Type Note Facility Evaluation note No Information [facility] Other History general Narrative - Reported Note [...] Appendectomy 2017 Hospitalization History see surgical history YES.[facility] Other Summary Purpose Family History No Family History Records Found Advance Directives No Advanced Directives Records Found Additional Source Comments (unrecognized sect ion and content) No Status Records Found INFORMATION SOURCE (unrecogn ized section and content) DATE CREATED AUTHOR 03/05/2022 [facility] [employer] REASON FOR VISIT (unrecogniz ed section and [...] BE BASED ON THE PRIMARY CLINICAL RECORDS. [employer] provides no warranty or guarantee of the accuracy or completeness of information in this document.
[2023-09-02 06:46] LABS: Basophils Absolute Auto 0.1 10^3/uL (0.0-0.1); Basophils Percent Auto 1.1 % (0.2-2.0); Eosinophils Absolute Auto 0.3 10^3/uL (0.0-0.7); Eosinophils Percent Auto 3.3 % (0.9-7.0); Hematocrit 50.3 % (42.0-54.0); Hemoglobin 17.2 g/dL (14.0-18.0); Immature Granulocytes Abs Auto 0.01 10^3/uL (0.00-0.03); Immature Granulocytes Pct Auto 0.1 % (0.0-0.5); Lymphocytes Absolute Auto 2.3 10^3/uL (1.2-3.8); Lymphocytes Percent Auto 28.9 % (20.5-60.0); Mean Corpuscular HGB Conc 34.2 g/dL (29.9-35.2); Mean Corpuscular Hemoglobin 30.1 pg (25.9-34.0); Mean Corpuscular Volume 88.1 fL (80.0-94.0); Mean Platelet Volume 9.5 fL (9.5-13.5); Monocytes Absolute Auto 0.8 10^3/uL (0.3-0.8); Monocytes Percent Auto 9.6 % (1.7-12.0); Neutrophils Absolute Auto 4.6 10^3/uL (1.4-6.5); Platelet Count 235 10^3/uL (150-450); Red Blood Count 5.71 10^6/uL (4.70-6.10); Red Cell Distribution Width 11.9 % (11.0-15.0); White Blood Count 8.1 10^3/uL (4.0-11.0)
[2023-09-02 07:06] LABS: Estimated Average Glucose 160 mg/dL; Glycohemoglobin A1C 7.2 % (4.5-6.2)
[2023-09-02 08:36] LABS: Alanine Aminotransferase 45 U/L (16-63); Albumin Level 3.5 g/dL (3.4-5.0); Alkaline Phosphatase 106 U/L (46-116); Anion Gap 12.9; Aspartate Amino Transferase 26 U/L (15-37); BUN Creatinine Ratio 18.1; Bilirubin Total 0.9 mg/dL (0.2-1.0); Calcium 8.9 mg/dL (8.5-10.1); Carbon Dioxide 26.1 mmol/L (21.0-32.0); Chloride 104 mmol/L (98-107); Chol HDL Ratio 4.1; Cholesterol 167 mg/dL (<=200); Estimated GFR (African America >60 (>=60); Estimated GFR (Non-African Ame >60 (>=60); Globulin 3.6 g/dL; Glucose 186 mg/dL (74-106); HDL Cholesterol 41 mg/dL (40-60); LDL Cholesterol Calculated 100.4 mg/dL; Sodium 139 mmol/L (136-145); Thyroid Stimulating Hormone 0.596 uIU/mL (0.358-3.740); Total Protein 7.1 g/dL (6.4-8.2); Triglycerides 128 mg/dL (<=150); VLDL CHOLESTEROL 25.6 mg/dL
== END 2023-09-02 06:34 | disposition home or self-care (01) ==
LOC: LAB 06:33
PROVIDERS: PCP Family Medicine; Visit Provider Family Medicine
DX: Z00.00 Encounter for general adult medical examination without abnormal findings (principal)
CPT/HCPCS: 36415; 80053; 80061; 83036; 84443; 85025

== ENCOUNTER 2024-08-01 06:31 | Outpatient (OUT) | payer BC, SELFPAY ==
--- OUTSIDE RECORDS SUMMARY | 2024-08-01 06:33 | XMS_ITS | CCD ---
Author Organization [facility] Care Team Providers Care Hearing Aid Mechanic Name Role Phone CATARINA, DR SANDOVAL Primary Care Unavailable AYDEN, DR STILES Attending Unavailable AYDEN, DR STILES Consulting Unavailable AYDEN, DR STILES Admitting Unavailable CATARINA, DR SANDOVAL Primary Care Unavailable TERRY, JAYNA [...] physicia Propensity to adverse reactions 9 Comment:Done [facility] Other (1 source) Allergies Reconciled Propensity to adverse reactions Unknown [facility] Other Medications Current Medications Medication Drug Class(es) [...] 2021 ADA RECOMMENDATION SEE BELOW Normal [facility] Comment on above: Result Comment: ADA RECOMMENDED LIMIT 4.0 - 6.0 ADA THERAPEUTIC TARGET < 7.0 ACTION SUGGESTED > 7.0 Performed By: #### A 1C #### [facility] [address] [place] [address] Dr. Carmel Overton Glucose [Mass/Vol] 157 mg/dL Normal [facility] Comment on above: Performed By: #### A 1C #### [facility] [address] [place] [address] Dr. Carmel Overton HbA1c (Bld) [Mass fraction] 7.1 % Critically high 4.5-6.2 [facility] [place] [facility] Comment on above: Performed By: #### A 1C #### [facility] [address] [place] [address] Dr. Carmel Overton Covid-19 PCR (CVDTB)on SARS-CoV-2 (COVID-19) RNA ABBE+probe Ql (Unsp spec) Not detected Normal NOT DETECTED [facility] Comment on above: Result Comment: When [...] for this test is supported by the P[employer] of Health and Human Service's declaration that [...] used). Performed By: #### C VDTBH #### [facility] [address] [place] [address] Dr. Carmel Overton CBC AUTO DIFFon 07-30-2021 BASO # 0.1 103/ul Normal 0.0-0.1 [facility] [place] [facility] Comment on above: Performed By: #### C BC #### [facility] [address] [place] [address] Dr. Carmel Overton Basophils/100 WBC (Bld) 0.8 % Normal 0.2-2.0 [facility] [place] [facility] Comment on above: Performed By: #### C BC #### [facility] [address] [place] [address] Dr. Carmel Overton EO # 0.3 103/ul Normal 0.0-0.[address] [facility] Comment on above: Performed By: #### C BC #### [facility] [address] [place] [address] Dr. Carmel Overton Eosinophils/100 WBC (Bld) 3.6 % Normal 0.9-7.0 [facility] [place] [facility] Comment on above: Performed By: #### C BC #### [facility] [address] [place] [address] Dr. Carmel Overton Erythrocyte distribution width (RBC) [Ratio] 12.4 % Normal 11.0-15.0 [facility] [place] [facility] Comment on above: Performed By: #### C BC #### [facility] [address] [place] [address] Dr. Carmel Overton Hematocrit (Bld) [Volume fraction] 49.5 % Normal 42.0-54.0 [facility] [place] [facility] Comment on above: Performed By: #### C BC #### [facility] [address] [place] [address] Dr. Carmel Overton Hemoglobin (Bld) [Mass/Vol] 16.8 g/dL Normal 14.0-18.0 [facility] [place] [facility] Comment on above: Performed By: #### C BC #### [facility] [address] [place] [address] Dr. Carmel Overton IG # 0.02 10e3/ul Normal 0.00-0.[address] [facility] Comment on above: Performed By: #### C BC #### [facility] [address] [place] [address] Dr. Carmel Overton IG % 0.2 % Normal 0.0-0.[address] [facility] Comment on above: Performed By: #### C BC #### [facility] [address] [place] [address] Dr. Carmel Overton LYMPH # 2.7 103/ul Normal 1.2-3.[address] [facility] Comment on above: Performed By: #### C BC #### [facility] [address] [place] [address] Dr. Carmel Overton Lymphocytes/100 WBC (Bld) 30.8 % Normal 20.5-60.0 [facility] [place] [facility] Comment on above: Performed By: #### C BC #### [facility] [address] [place] [address] Dr. Carmel Overton MANUAL DIFF REQ NO Normal [facility] Comment on above: Performed By: #### C BC #### [facility] [address] [place] [address] Dr. Carmel Overton MCH (RBC) [Entitic mass] 30.3 pg Normal 25.9-34.0 [facility] [place] [facility] Comment on above: Performed By: #### C BC #### [facility] [address] [place] [address] Dr. Carmel Overton MCHC (RBC) [Mass/Vol] 33.9 g/dL Normal 29.9-35.2 [facility] [place] [facility] Comment on above: Performed By: #### C BC #### [facility] [address] [place] [address] Dr. Carmel Overton MCV (RBC) [Entitic vol] 89.2 fL Normal 80.0-94.0 [facility] [place] [facility] Comment on above: Performed By: #### C BC #### [facility] [address] [place] [address] Dr. Carmel Overton MONO # 0.8 103/ul Normal 0.3-0.[address] [facility] Comment on above: Performed By: #### C BC #### [facility] [address] [place] [address] Dr. Carmel Overton Monocytes/100 WBC (Bld) 8.7 % Normal 1.7-12.[address] [facility] Comment on above: Performed By: #### C BC #### [facility] [address] [place] [address] Dr. Carmel Overton NEUT # 4.8 103/ul Normal 1.4-6.[address] [facility] Comment on above: Performed By: #### C BC #### [facility] [address] [address] [address] Carmel Overton Neutrophils/100 WBC (Bld) 55.9 % Normal 43.0-75.0 [facility] [place] [facility] Comment on above: Performed By: #### C BC #### [facility] [address] [address] [address] Carmel Overton Platelet mean volume (Bld) [Entitic vol] 9.2 fL Critically low 9.5-13.5 [facility] [place] [facility] Comment on above: Performed By: #### C BC #### [facility] [address] [address] [address] Carmel Overton PLT 266 103/ul Normal 150-[address] [facility] Comment on above: Performed By: #### C BC #### [facility] [address] [place] [address] Dr. Carmel Overotn RBC 5.55 106/ul Normal 4.70-6.10 [facility] [place] [facility] Comment on above: Performed By: #### C BC #### [facility] [address] [address] [address] Carmel Overton WBC 8.6 103/ul Normal 4.0-11.0 [facility] [place] [facility] Comment on above: Performed By: #### C BC #### [facility] [address] [place] [address] Dr. Carmel Overton GLYCOHEMOGLOBIN A1Con 2021 ADA RECOMMENDATION SEE BELOW Normal [facility] Comment on above: Result Comment: ADA RECOMMENDED LIMIT 4.0 - 6.0 ADA THERAPEUTIC TARGET < 7.0 ACTION SUGGESTED > 7.0 Performed By: #### A 1C #### [facility] [address] [place] [address] Dr. Carmel Overton Glucose [Mass/Vol] 157 mg/dL Normal [facility] Comment on above: Performed By: #### A 1C #### [facility] [address] [place] [address] Dr. Carmel Overton HbA1c (Bld) [Mass fraction] 7.1 % Critically high 4.5-6.2 [facility] [place] [facility] Comment on above: Performed By: #### A 1C #### [facility] [address] [address] [address] Carmel Overton LIPID PROFILEon 07-30-2021 CHOL-HDL RATIO NORM SEE BELOW Normal [facility] Comment on above: Result Comment: 3.3 - 4.4 LOW RISK 4.4 - 7.1 AVERAGE RISK 7.1 - 11.0 MODERATE RISK >11.0 HIGH RISK Performed By: #### L IPID, TSH, CMP #### [facility] [address] [address] [address] Carmel Overton Cholesterol [Mass/Vol] 148 mg/dL Normal <=200 [facility] [place] [facility] Comment on above: Performed By: #### L IPID, TSH, CMP #### [facility] [address] [address] [address] Carmel Overton Cholesterol in HDL [Mass/Vol] 39 mg/dL Critically low 40-60 [facility] [place] [facility] Comment on above: Performed By: #### L IPID, TSH, CMP #### [facility] [address] [address] [address] Carmel Overton Cholesterol in LDL [Mass/Vol] 86.8 mg/dL Normal [facility] [place] [facility] Comment on above: Performed By: #### L IPID, TSH, CMP #### [facility] [address] [address] [address] Carmel Overton Cholesterol.total/Cho lesterol in HDL [Mass ratio] 3.8 {ratio} Normal [facility] [place] [facility] Comment on above: Performed By: #### L IPID, TSH, CMP #### [facility] [address] [address] [address] Carmel Overton HDL NORMAL > or = 60 mg/dl - LO W CARDIOVASCULAR RISK <40 mg/dl - HIGH CARDIOVASCULAR RISK Normal [facility] [place] [facility] Comment on above: Performed By: #### L IPID, TSH, CMP #### [facility] [address] [place] [address] Dr. Carmel Overton LDL CALC NORMAL SEE BELOW Normal [facility] Comment on above: Result Comment: <100 mg/dl OPTIMAL 100 - 129 mg/dl NEAR OR ABOVE OPTIMAL 130 - 159 mg/dl BORDERLINE HIGH 160 - 189 mg/dl HIGH >190 mg/dl VERY HIGH Performed By: #### L IPID, TSH, CMP #### [facility] [address] [place] [address] Dr. Carmel Overton Triglyceride [Mass/Vol] 111 mg/dL Normal <=150 [facility] [place] [facility] Comment on above: Performed By: #### L IPID, TSH, CMP #### [facility] [address] [place] [address] Dr. Carmel Overton VLDL CALC 22.2 mg/dL Normal [facility] [place] [facility] Comment on above: Performed By: #### L IPID, TSH, CMP #### [facility] [address] [place] [address] Dr. Carmel Overton PROF 14(COMP METB)on 022 Albumin [Mass/Vol] 3.6 g/dL Normal 3.4-5.0 [facility] Comment on above: Performed By: #### L IPID, TSH, CMP #### [facility] [address] [place] [address] Dr. Carmel Overton Albumin/Globulin [Mass ratio] 1.0 {ratio} Normal [facility] [place] [facility] Comment on above: Performed By: #### L IPID, TSH, CMP #### [facility] [address] [place] [address] Dr. Carmel Overton ALP [Catalytic activity/Vol] 113 U/L Normal 46-116 [facility] [place] [facility] Comment on above: Performed By: #### L IPID, TSH, CMP #### [facility] [address] [place] [address] Dr. Carmel Overton ALT [Catalytic activity/Vol] 47 U/L Normal 16-63 [facility] [place] [facility] Comment on above: Performed By: #### L IPID, TSH, CMP #### [facility] [address] [place] [address] Dr. Carmel Overton Anion gap [Moles/Vol] 11.8 mmol/L Normal [facility] Comment on above: Performed By: #### L IPID, TSH, CMP #### [facility] [address] [place] [address] Dr. Carmel Overton AST [Catalytic activity/Vol] 25 U/L Normal 15-37 [facility] [place] [facility] Comment on above: Performed By: #### L IPID, TSH, CMP #### [facility] [address] [place] [address] Dr. Carmel Overton Bilirubin [Mass/Vol] 0.8 mg/dL Normal 0.2-1.0 [facility] [place] [facility] Comment on above: Performed By: #### L IPID, TSH, CMP #### [facility] [address] [place] [address] Dr. Carmel Overton Calcium [Mass/Vol] 9.2 mg/dL Normal 8.5-10.1 [facility] Comment on above: Performed By: #### L IPID, TSH, CMP #### [facility] [address] [place] [address] Dr. Carmel Overton Chloride [Moles/Vol] 100 mmol/L Normal 98-[address] [facility] Comment on above: Performed By: #### L IPID, TSH, CMP #### [facility] [address] [place] [address] Dr. Carmel Overton CO2 [Moles/Vol] 29.1 mmol/L Normal 21.0-32.0 [facility] Comment on above: Performed By: #### L IPID, TSH, CMP #### [facility] [address] [place] [address] Dr. Carmel Overton Creatinine [Mass/Vol] 0.77 mg/dL Normal 0.70-1.30 [facility] [place] [facility] Comment on above: Performed By: #### L IPID, TSH, CMP #### [facility] [address] [place] [address] Dr. Carmel Overton EGFR-AF EQUATORIAL GUINEAN >60 Normal >=60 [facility] Comment on above: Performed By: #### L IPID, TSH, CMP #### [facility] [address] [place] [address] Dr. Carmel Overton EGFR-NON AF EQUATORIAL GUINEAN >60 Normal >=60 [facility] [place] [facility] Comment on above: Performed By: #### L IPID, TSH, CMP #### [facility] [address] [address] [address] Carmel Overton Globulin (S) [Mass/Vol] 3.6 g/dL Normal [facility] [place] [facility] Comment on above: Performed By: #### L IPID, TSH, CMP #### [facility] [address] [address] [address] Carmel Overton Glucose [Mass/Vol] 172 mg/dL Critically high 74-106 [facility] Comment on above: Performed By: #### L IPID, TSH, CMP #### [facility] [address] [address] [address] Carmel Overton Potassium [Moles/Vol] 3.9 mmol/L Normal 3.5-5.1 [facility] [place] [facility] Comment on above: Performed By: #### L IPID, TSH, CMP #### [facility] [address] [place] [address] Dr. Carmel Overton Protein [Mass/Vol] 7.2 g/dL Normal 6.4-8.2 [facility] Comment on above: Performed By: #### L IPID, TSH, CMP #### [facility] [address] [place] [address] Dr. Carmel Overton Sodium [Moles/Vol] 137 mmol/L Normal 136-145 [facility] Comment on above: Performed By: #### L IPID, TSH, CMP #### [facility] [address] [place] [address] Dr. Carmel Overton Urea nitrogen [Mass/Vol] 9.0 mg/dL Normal 7.0-18.0 [facility] [place] [facility] Comment on above: Performed By: #### L IPID, TSH, CMP #### [facility] [address] [place] [address] Dr. Carmel Overton Urea nitrogen/Creatinine [Mass ratio] 11.7 mg/mg Normal [facility] [place] [facility] Comment on above: Performed By: #### L IPID, TSH, CMP #### [facility] [address] [address] [address] Carmel Overton TSHon 05-19-2022 TSH 0.696 uIU/mL Normal 0.358-3.740 [facility] Comment on above: Performed By: #### L IPID, TSH, CMP #### [facility] [address], [place] [address] Dr. Carmel Overton TSH RANGE SEE BELOW Normal [facility] Comment on above: Result Comment: <0.3 4 UIU/ml HYPERTHYROID 0.34-5.60 UIU/ml EUTHYROID >5.60 UIU/ml HYPOTHYROID Performed By: #### L IPID, TSH, CMP #### [facility] [address] [place], [place] [address] Dr. Carmel Overton Covid-19 PCR (CVDTB)on 03-14 SARS-CoV-2 (COVID-19) RNA ABBE+probe Ql (Unsp spec) Not detected Normal NOT DETECTED [facility] Comment on above: Result Comment: When diagnostic testing is negative, the possibility of a false negative should be considered in the context of a patient's recent exposures and the presence of clinical signs and symptoms consistent with SARS-CoV-2. This test is not yet approved or cleared by the [place] Food and Drug Administration (FDA). This test was developed by [employer], [place], [place]. The performance characteristics of this test were validated by [facility]. The results are not intended to be used as the sole means for clinical diagnosis or patient management decisions. [facility] is authorized under Clinical Laboratory Improvement [...] for this test is supported by the [place] of Health and Human Service's declaration that [...] used). Performed By: #### C VDTBH #### [facility] [address] [address] [address] Carmel Overton Vital Signs Date Time Vital Sign Value Performing Clinician Facility 02-11-2023 08:30-0500 Body height 175.26 cm Christ Ball Other [facility] Other 02-11-2023 08:30-0500 Body mass index (BMI) [Ratio] 25.9 kg/m2 Christ Ball Other [facility] Other 02-11-2023 08:30-0500 Body weight 79.56 kg Christ Ball Other [facility] Other 02-11-2023 08:30-0500 Diastolic blood pressure 88 mm[Hg] Christ Ball Other [facility] Other 02-11-2023 08:30-0500 Respiratory rate 12 /min Christ Ball Other [facility] Other 02-11-2023 08:30-0500 Systolic blood pressure 138 mm[Hg] Christ Ball Other [facility] Other 09-09-2022 09:00-0400 Body height 175.26 cm Christ Ball Other [facility] Other 09-09-2022 09:00-0400 Body mass index (BMI) [Ratio] 26.34 kg/m2 Christ Ball Other [facility] Other 09-09-2022 09:00-0400 Body weight 80.92 kg Christ Ball Other [facility] Other 09-09-2022 09:00-0400 Diastolic blood pressure 85 mm[Hg] Christ Ball Other [facility] Other 09-09-2022 09:00-0400 Respiratory rate 12 /min Christ Elmore Other [facility] Other 09-09-2022 09:00-0400 Systolic blood pressure 139 mm[Hg] Christ Elmore Other [facility] Other Encounters Encounter Date Encounter Type Care Provider Facility Start: 02-14-2023 End: 02-14-2023 ambulatory Christ Elmore Other [facility] Other Start: 02-14-2023 Telephone encounter Christ TOMAS [facility] Start: 02-11-2023 End: 02-11-2023 ambulatory Christ Elmore Other [facility] Other Start: 02-11-2023 Office outpatient vi sit 15 minutes Christ Elmore [facility] Start: 12-25-2022 End: 12-25-2022 ambulatory Christ Elmore Other [facility] Other Start: 12-25-2022 Telephone encounter Christ TOMAS [facility] Start: 09-09-2022 End: 09-09-2022 ambulatory Christ Elmore Other [facility] Other Start: 09-09-2022 Encounter for genera l adult medical examination without abnormal findings Christ Elmore [facility] Start: 09-09-2022 Periodic preventive med est patient 40-64yrs Christ Elmore [facility] Start: 02-24-2022 End: 02-25-[address] CHRIST ELMORE Facility:[facility] Start: 02-10-2022 End: 02-11-[address] CHRIST ELMORE Facility:[facility] Start: 11-18-2021 End: 11-18-2021 ambulatory JAYNA STEWART Facility:[facility] Start: 08-26-2021 Adult health examination Christ Elmore Other [facility] Other Start: 08-04-2021 Encounter for genera l adult medical examination without abnormal findings DR CHRIST ELMORE [facility] [place] [facility] Start: 07-30-2021 End: 07-31-[address] CHRIST ELMORE Facility:[facility] Start: 07-30-2021 End: 07-31-2021 Encounter for general adult medical examination without abnormal findings DR CHRIST ELMOER Facility:[facility] Start: 03-30-2021 End: 03-30-[address] CHRIST ELMORE Facility:[facility] Procedures Date Procedure Procedure Detail Performing Clinician Start: 07-30-[address] DYAN ELMORE Comment on above: Performed By: #### P SAS #### [facility] [address] [address] [address] Carmel Overton Start: 08-02-2018 General examination of patient Christ Elmore Other Start: 08-02-2018 Screening for malign ant neoplasm of colon Christ Elmore Other Depression screening [facility] Other Immunizations Immunization Date Immunization Notes Care Provider [facility] 02-16-2022 COVID-19 Vaccine Moderna - Documentation Purposes Only Christ Elmore Other [facility] Other 01-23-2021 COVID-19 Vaccine Moderna - Documentation Purposes Only Christ Elmore Other [facility] Other 04-10-2020 COVID-19 Vaccine Moderna - Documentation Purposes Only Christ Elmore Other [facility] Other 03-12-2020 COVID-19 Vaccine Moderna - Documentation Purposes Only Christ Elmore Other [facility] Other 01-12-2017 influenza virus vaccine, split virus (incl. purified surface antigen) Christ Elmore Other [facility] Other Payers Date Payer Category Payer Unknown [id number] 1960 Unknown [id number] 1960 Unknown [id number] [id number] 1960 Unknown [id number] 1960 Unknown [id number] [id number] 1959 [facility] [id number] [id number] Unknown [id number] Social History Date Type Detail Facility Sex Assigned At [facility] Other Evaluation note 02-14-2023 Note Date & Type Note Facility 02-14-2023 Evaluation note Encounter Date Diagnosis Assessment Notes Feb, Contusion of right lower leg, subsequent encounter (ICD-10 - S80.11XD) [facility] Other Evaluation note 02-11-2023 Note Date & [...] or drinking prior to bedtime. Weight loss. [facility] Other Evaluation note 09-09-2022 Note Date & [...] exercise for 30 minutes, 3-5 times weekly. [facility] Other Evaluation note Note Date & Type Note Facility Evaluation note No Information [facility] Other History general Narrative - Reported Note [...] Appendectomy 2017 Hospitalization History see surgical history [facility] Other Summary Purpose Family History No Family [...] BE BASED ON THE PRIMARY CLINICAL RECORDS. [employer] provides no warranty or guarantee of the accuracy or completeness of information in this document.
[2024-08-01 07:43] LABS: Basophils Absolute Auto 0.1 10^3/uL (0.0-0.1); Basophils Percent Auto 1.1 % (0.2-2.0); Eosinophils Absolute Auto 0.3 10^3/uL (0.0-0.7); Hematocrit 51.8 % (42.0-54.0); Hemoglobin 17.8 g/dL (14.0-18.0); Immature Granulocytes Abs Auto 0.02 10^3/uL (0.00-0.03); Immature Granulocytes Pct Auto 0.3 % (0.0-0.5); Lymphocytes Absolute Auto 2.2 10^3/uL (1.2-3.8); Lymphocytes Percent Auto 30.6 % (20.5-60.0); Mean Corpuscular HGB Conc 34.4 g/dL (29.9-35.2); Mean Corpuscular Hemoglobin 30.9 pg (25.9-34.0); Mean Corpuscular Volume 89.9 fL (80.0-94.0); Mean Platelet Volume 10.1 fL (9.5-13.5); Monocytes Absolute Auto 0.7 10^3/uL (0.3-0.8); Monocytes Percent Auto 9.9 % (1.7-12.0); Neutrophils Absolute Auto 3.9 10^3/uL (1.4-6.5); Neutrophils Percent Auto 54.1 % (43.0-75.0); Platelet Count 227 10^3/uL (150-450); Red Blood Count 5.76 10^6/uL (4.70-6.10); Red Cell Distribution Width 12.5 % (11.0-15.0); White Blood Count 7.3 10^3/uL (4.0-11.0)
[2024-08-01 07:52] LABS: Alanine Aminotransferase 33 U/L (16-63); Albumin Globulin Ratio 1.1; Albumin Level 3.6 g/dL (3.4-5.0); Alkaline Phosphatase 95 U/L (46-116); Anion Gap 13.1; Aspartate Amino Transferase 18 U/L (15-37); Bilirubin Total 0.9 mg/dL (0.2-1.0); Calcium 9.3 mg/dL (8.5-10.1); Carbon Dioxide 28.9 mmol/L (21.0-32.0); Chloride 104 mmol/L (98-107); Chol HDL Ratio 3.3; Cholesterol 144 mg/dL (<=200); Estimated GFR (African America >60 (>=60 mL/min/1.73m^2); Estimated GFR (Non-African Ame >60 (>=60 mL/min/1.73m^2); Globulin 3.3 g/dL; Glucose 157 mg/dL (74-106); HDL Cholesterol 44 mg/dL (40-60); Sodium 142 mmol/L (136-145); Thyroid Stimulating Hormone 0.752 uIU/mL (0.358-3.740); Total Protein 6.9 g/dL (6.4-8.2); Triglycerides 130 mg/dL (<=150)
[2024-08-01 08:26] LABS: Prostate Specific Antigen Scrn 1.48 ng/mL (<=4.00)
[2024-08-01 08:29] LABS: Estimated Average Glucose 146 mg/dL; Glycohemoglobin A1C 6.7 % (4.5-6.2)
== END 2024-08-01 06:32 | disposition home or self-care (01) ==
LOC: LAB 06:31
PROVIDERS: PCP Family Medicine; Visit Provider Family Medicine
DX: Z00.00 Encounter for general adult medical examination without abnormal findings (principal)
CPT/HCPCS: 36415; 80053; 80061; 83036; 84443; 85025; G0103